=== PATIENT | male | born 1980 | race Caucasian/White ===

== ENCOUNTER → 2017-05-31 20:19 | Outpatient (CLI) | payer MEDICAID, SELFPAY | DX: G47.10 Hypersomnia, unspecified (principal) | CPT/HCPCS: 95810 ==

== ENCOUNTER → 2017-08-10 20:05 | Outpatient (CLI) | payer MEDICAID, SELFPAY | PROVIDERS: Family Provider Nurse Practitioner Family; PCP Nurse Practitioner Family; Visit Provider Nurse Practitioner Family | DX: G47.33 Obstructive sleep apnea (adult) (pediatric) (principal) | CPT/HCPCS: 95811 ==

== ENCOUNTER 2022-02-21 17:49 | Emergency (ER) | payer MEDICAID, SELFPAY ==
[2022-02-21 17:50] VITALS: BP 165/86; PULSE 104; RESP 18; TEMP 36.6; O2SAT 96; BMI 34.2
[2022-02-21 18:46] LABS: Bacteria 0 SEEN /hpf (None Seen); Mucous, Urine 0 SEEN /hpf (<or=2+); Red Blood Cells-Urine 0 SEEN /hpf (0-5); Squamous Epithelial Cells - UA 0 SEEN /hpf (0-5)
[2022-02-21 18:47] LABS: Color, Urine Yellow (Yellow); Glucose, Dipstick Normal (Normal); Ketone-Dipstick Negative (Negative); Leukocyte Esterase-Dipstick 100 /ul (Negative); Nitrite-Dipstick Positive (Negative); Occult Blood-Urine 10 /ul (Negative); Protein-Dipstick 15 mg/dl (Negative); Urine Bilirubin Dipstick Negative (Negative); Urine Clarity Clear (Clear); Urine Urobilinogen Normal (Normal)
[2022-02-21 19:15] LABS: White Blood Cells 0-5 SEEN /hpf (0-5)
--- NOTE | 2022-02-21 20:28 | CT_ITS ---
STUDY: CT Abdomen And Pelvis W/ Contrast Injection 02/21/2022 9:15 PM REASON FOR EXAM: Male, 41 years old. ABDOMINAL PAIN abd pain TECHNIQUE: Transaxial images were obtained without oral contrast, and with IV 100mL [id number]-[id number] intravenous contrast. Individualized dose optimization techniques were used for this CT. COMPARISON: 01.11.15 FINDINGS: The visualized lung bases are unremarkable. The visualized portions of the heart are within normal limits. Unremarkable liver. Unremarkable gallbladder and extrahepatic biliary system. Unremarkable spleen. Unremarkable pancreas. Unremarkable bilateral adrenal glands. No acute findings of the right kidney. No acute findings of the left kidney. Unremarkable visualized stomach. Unremarkable small intestine. There are multiple colonic diverticula consistent with diverticulosis. There is non-visualization of the appendix. There are calcifications of the abdominal aorta. This is consistent for atherosclerotic disease. There is no abdominal aortic aneurysm. Unremarkable inferior vena cava. Subcentimeter mesenteric lymph nodes. Unremarkable urinary bladder. There is a right inguinal hernia containing fat. There is no bowel involvement. There is no incarceration. There is no findings suggesting that this is causing a bowel obstruction. Benign inguinal lymph nodes. There is an umbilical hernia containing fat. Unremarkable osseous structures. CT/Abdomen/Pelvis W IV Cont ONLY IMPRESSION: (NOT LISTED IN ORDER OF SIGNIFICANCE) There are multiple colonic diverticula consistent with diverticulosis. Other findings as above. Electronically Signed: Gabino Davis MD at 21:17 [facility] ,
--- NOTE | 2022-02-21 20:31 | EDS_ITS ---
HPI HPI - GI History of Present Illness Chief Complaint: Abd Pain Informant: patient Narrative Narrative: 2 days lower abdominal pain waxing waning increasing sharpness. Today pain to the lower back. Denies trauma. Denies urinary symptoms. Denies fever. Denies nausea and vomiting. Colonoscopy a year ago due to GI issues with bloody stools. He has had decreased bowel movements for the past 2 days. No bloody stools. No diverticulitis. No abdominal surgeries. Allergies to penicillins causing hives. Prior similar symptoms: No PFSH PFSH Home Medications omeprazole 10 mg capsule,delayed release mg PO DAILY 01/11/15 [History Last Taken Unknown] Allergy/AdvReac Type Severity Reaction Status Date / Time Penicillins Allergy Hives Verified 02/21/22 17:49 Social History Smoking Status: Current every day smoker tobacco type: cigarettes ROS ROS ED Constitutional Constitutional ED: Denies chills, fever(s) or sweats Eyes Eyes: Denies change in vision ENT ENT ED: Denies dysphagia or sore throat Cardiovascular Cardiovascular: Denies chest pain, leg edema, palpitations or racing heartbeat Respiratory/Chest Respiratory/Chest: Denies cough, dyspnea or dyspnea on exertion Gastrointestinal Gastrointestinal: Reports abdominal pain; Denies diarrhea, nausea or vomiting Genitourinary Genitourinary ED: Denies dysuria, hematuria or urinary frequency Musculoskeletal Musculoskeletal: Denies back pain, extremity pain or neck pain Integumentary Denies rash or wounds Neurologic Neurologic: Denies headache(s), paresthesias or weakness EXAM Physical Exam Const Vital Signs: 02/21/22 17:50 02/21/22 22:00 Temperature 97.8 F Temperature Source Temporal Pulse Rate 104 H Respiratory Rate 18 19 H Blood Pressure 165/86 H Blood Pressure Mean 112 Pulse Ox 96 Oxygen Delivery Method Room Air Room Air Positive well nourished and well developed General Appearance ED: well developed and NAD HEENT Reports moist mucous membranes normocephalic and atraumatic Eyes PERRL, EOMs intact bilaterally and conjunctivae normal General Eye ED: Yes normal appearance of both eyes Neck no lymphadenopathy and supple General: Negative for tenderness Chest Wall Chest: Negative for tenderness Resp normal respiratory effort and normal air movement Effort and Inspection: symmetric chest movement; Negative for respiratory distress Cardio regular rate, regular rhythm and no murmurs Peripheral Pulses: pulses 2+ throughout GI normal to inspection, nondistended, normoactive bowel sounds GI Narrative: Tender palpation suprapubic left lower quadrant and right lower quadrant however primary left-sided. Mild guarding. No rebound. Palpation: guarding; Negative for rebound tenderness present Back/Spine no CVA tenderness and no thoracic nor lumbar tenderness Extremity normal to inspection General Extremety ED: Negative for edema or tenderness General Extremity: Negative for edema Neuro oriented x3 and no sensory deficits noted Sensorium / Orientation: awake and alert Skin no rashes or lesions noted and no wounds MDM MDM MDM Narrative Medical decision making narrative: Patient tender lower quadrants and left lower quadrant more with his decreased bowel movements, concerns for diverticulitis. Work-up initiated. Urine did show nitrites and leukocytes however denies urinary symptoms. White count was 17. Creatinine 1.34. He is given fluids continue IV fluids. CT scan abdomen pelvis IV contrast did not note any diverticulitis and noted right fat inguinal hernia is not tender in his abdomen he has a nonvisualized appendix. Patient initially wanted low-dose morphine due to having side effects with higher dose in the past. He is given Zofran with this. 2135: Reevaluation after CT scan no significant provement pain pain now seems right lower quadrant. He has no inguinal pain. I discussed with on-call radha Diallo, will obtain a CT scan with oral contrast for further evaluation. 0045: CT scan oral contrast obtained resulted per radiology and normal appendix. There is bilateral inguinal hernia with fat. Nonobstructing. Reevaluation of his abdomen, currently very minimal suprapubic tenderness. He had urine with nitrites and leukocytes however denies dysuria or frequency. There was mild hematuria. There is no kidney stones. Urine culture sent and pending. Would not treat without symptoms. Reevaluations right lower quadrant currently nontender. Is no left lower quadrant tenderness. Discussed with patient monitoring symptoms for progression with strict return precautions. He will use Tylenol as needed he will stay on a light diet currently. Symptoms worsens with new symptoms developing he will return for reevaluation. All questions were answered. Lab Data Attestation: I reviewed the patient's lab results. Labs: Laboratory Results - last 24 hr 02/21/22 02/21/22 02/21/22 17:55 20:36 20:36 WBC 17.7 H RBC 5.38 Hgb 16.0 Hct 48.6 MCV 90.3 MCH 29.7 MCHC 32.9 RDW Std Deviation 40.5 RDW Coeff of Sammi 12.2 Plt Count 386 MPV 9.3 Immature Gran % (Auto) 1.700 H Neut % (Auto) 72.1 H Lymph % (Auto) 19.5 [place] % (Auto) 5.0 Eos % (Auto) 1.1 Baso % (Auto) 0.6 Absolute Neuts (auto) 12.7 H Absolute Lymphs (auto) 3.45 Nucleated RBC % 0 Sodium 138 Potassium 3.7 Chloride 102 Carbon Dioxide 32.0 Anion Gap 4 L BUN 11 Creatinine 1.34 H Estim Creat Clear Calc 80.33 Est GFR (MDRD) Af Amer 75 Est GFR (MDRD) Non-Af 62 BUN/Creatinine Ratio 8.2 L Glucose 102 Calcium 9.3 Urine Color Yellow Urine Clarity Clear Urine pH 7.0 Ur Specific [place] 1.010 Urine Protein 15 H Urine Glucose (UA) Normal Urine Ketones Negative Urine Occult Blood 10 H Urine Nitrite Positive H Urine Bilirubin Negative Urine Urobilinogen Normal Ur Leukocyte Esterase 100 H Urine RBC 0 SEEN Urine WBC 0-5 SEEN Ur Squamous Epith Cells 0 SEEN Urine Bacteria 0 SEEN Urine Mucus 0 SEEN Radiography Diagnostic Testing: Clinical Impression(s) from Imaging Studies Abdomen/Pelvis CT 02/21/22 20:28 IMPRESSION: (NOT LISTED IN ORDER OF SIGNIFICANCE) There are multiple colonic diverticula consistent with diverticulosis. Other findings as above. Electronically Signed: Gabino Davis MD at 21:17 EST , Abdomen CT 02/21/22 21:40 IMPRESSION: 1. Normal appendix. 2. Small fat-containing inguinal hernias bilaterally. No bowel involvement. 3. No acute abdominal pelvic abnormality. 4. Minimal scattered diverticula without diverticulitis. Electronically Signed: Soham Mccann MD at 0:06 EST , Discharge Plan Triage Chief Complaint: Abd Pain ED Provider: Jaime Rivera Dx/Rx/DC Orders Clinical Impression: Abdominal pain, Inguinal hernia bilateral, non-recurrent, Leukocytosis Instructions: Abdominal Pain Prescriptions: No Action omeprazole 10 MG capsule PO DAILY Label Comments: DOSE UNKNOWN Primary Care Provider: Felicitas Shanks NP Referrals: Felicitas Shanks NP, [employer] [Primary Care Provider] - Activity Restrictions/Additional Instructions: TimesCT scan abdomen pelvis x 2, second noting normal appendix. Fat-containing inguinal hernia bilaterally. Use Tylenol as needed light diet next 12 to 24 hours. If worsening symptoms or new symptoms develop return for reevaluation. Disposition Disposition: Home, Self Care Discharge Date/Time: 02/22/22 01:05
[2022-02-21] MEDS: 0.9% Normal Saline 1,000 ML 1000 ML IV (20:40)
[2022-02-21] MEDS: Morphine 2 MG/ML Syringe IV (20:40)
[2022-02-21] MEDS: Ondansetron 4 MG/2 ML Vial IV (20:40)
[2022-02-21 20:43] LABS: Absolute Lymphocyte Count 3.45 X10^3/uL (0.83-4.51); Absolute Neutrophil Count 12.7 X10^3/uL (2.0-7.7); Basophil% 0.6 % (0-1); Eosinophil# 0.19 X10^3/uL; Eosinophils% 1.1 % (0-5); Hematocrit 48.6 % (40-54); Lymphocyte # 3.45 X10^3/ul (0.83-4.51); Lymphocyte % 19.5 % (19-41); Mean Corp Hgb Conc 32.9 g/dL (32-36); Mean Corpuscular Hgb 29.7 pg (27.0-32.0); Mean Corpuscular Volume 90.3 fL (80-94); Mean Platelet Vol. 9.3 fl (6.2-12.0); Monocyte# 0.89 X10^3/uL; NRBC Flagged by Analyzer 0 % (0-5); Neutrophil # 12.72 X10^3/uL (2.7-7.7); Neutrophil % 72.1 % (47-70); Platelet Count 386 K/mm3 (150-450); RBC Distribution Width CV 12.2 % (11.6-14.6); RBC Distribution Width SD 40.5 fl (35.1-43.9); Red Blood Count 5.38 M/mm3 (4.6-6.2); White Blood Count 17.7 K/mm3 (4.4-11.0)
[2022-02-21 21:03] LABS: Anion Gap 4 (5-15); BUN 11 mg/dL (7-18); BUN/Creat Ratio 8.2 RATIO (10-20); Calcium,Total 9.3 mg/dL (8.5-10.1); Chloride 102 mmol/L (98-107); Creatinine, Serum 1.34 mg/dL (0.70-1.30); EST Glomerular Filtration Rate 62 mL/min (>60); Est Glom Filt Rate - Afr Amer 75 mL/min (>60); Estimated Creatinine Clearance 80.33 ml/min; Glucose 102 mg/dL (74-106); Potassium 3.7 mmol/L (3.5-5.1); Sodium Level 138 mmol/L (136-145)
[2022-02-21] MEDS: Morphine 4 MG/ML Syringe IV (21:40)
--- NOTE | 2022-02-21 21:40 | CT_ITS ---
EXAM: CT ABDOMEN AND PELVIS WITHOUT INTRAVENOUS CONTRAST CLINICAL INDICATION: RLQ pain TECHNIQUE: Helically acquired images were obtained of the abdomen and pelvis without intravenous contrast. This CT exam was performed using one or more of the following dose reduction techniques: automated exposure control, adjustment of the mA and/or kV according to patient size, and/or use of iterative reconstruction technique. This report was created using [employer] report generation technology. CONTRAST: With oral Gastrografin. RADIATION DOSE: CTDIvol = 20.54 mGy, DLP = 1180.07 mGy-cm. COMPARISON: 02/21/2022 at 8:54 PM. FINDINGS: LOWER THORAX: Unremarkable. Lung bases are clear. No cardiomegaly. No significant pericardial effusion. ABDOMEN: LIVER: Unremarkable. Homogeneous. GALLBLADDER AND BILE DUCTS: Unremarkable. No calcified gallstones. No gallbladder distention or wall edema. No intra- or extrahepatic biliary ductal dilation. PANCREAS: Unremarkable. No focal cystic mass. SPLEEN: Unremarkable. Normal size without focal cystic or solid mass. ADRENALS: Unremarkable. No nodules. KIDNEYS AND URETERS: Unremarkable. Normal renal size and position. No hydronephrosis. STOMACH AND BOWEL: Minimal scattered diverticula without diverticulitis. No stomach or bowel distention. PELVIS: APPENDIX: Normal appendix. BLADDER: Unremarkable. REPRODUCTIVE: Unremarkable as visualized. No mass. ABDOMEN and PELVIS: INTRAPERITONEAL SPACE: Unremarkable. No ascites or other fluid collection. No free air. BONES/JOINTS: Unremarkable. No suspicious lytic or blastic abnormality. SOFT TISSUES: Small fat-containing inguinal hernias bilaterally. VASCULATURE: Unremarkable. Abdominal aorta is non-dilated. LYMPH NODES: Unremarkable. No enlarged lymph nodes. CT/Abdomen/Pel W ORAL Cont Only IMPRESSION: 1. Normal appendix. 2. Small fat-containing inguinal hernias bilaterally. No bowel involvement. 3. No acute abdominal pelvic abnormality. 4. Minimal scattered diverticula without diverticulitis. Electronically Signed: Soham Mccann MD at 0:06 EST ,
[2022-02-21 22:00] VITALS: RESP 19
[2022-02-21] MEDS: 0.9% Normal Saline 1,000 ML 150 ML IV (22:24)
== END 2022-02-22 01:05 | disposition home or self-care (01) ==
PROVIDERS: Emergency Provider Emergency Medicine; PCP Nurse Practitioner Family; Visit Provider Emergency Medicine
DX: K40.20 Bilateral inguinal hernia, without obstruction or gangrene, not specified as recurrent (principal); R10.9 Unspecified abdominal pain; D72.829 Elevated white blood cell count, unspecified; F17.210 Nicotine dependence, cigarettes, uncomplicated
CPT/HCPCS: 96374; 96375; 96376; 96370 ×2; 74176; 74177; 80048; 81001; 85025; 87086; 96361; 99283; J7030; Q9967; A4216; J2405